=== PATIENT | male | born 1985 | race Caucasian/White ===

== ENCOUNTER 2019-12-20 22:52 | Emergency (ER) | payer BC, SELFPAY ==
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
[2019-12-20 22:58] VITALS: BP 157/102; PULSE 72; RESP 16; TEMP 35.8; O2SAT 98
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
[2019-12-20] MEDS: HYDROcodone/acetaminophen (*CRX) 5-325 MG TABLET 1 TAB PO (23:20)
[2019-12-20 23:50] VITALS: TEMP 36.9
[2019-12-21 00:22] VITALS: BP 146/74; PULSE 67; RESP 16; TEMP 36.9; O2SAT 100
== END 2019-12-21 00:25 | disposition home or self-care (01) ==
LOC: ANHED 12-21 00:06
PROVIDERS: Emergency Provider Emergency Medicine; PCP Family Medicine
DX: S52.591A Other fractures of lower end of right radius, initial encounter for closed fracture (principal); S52.611A Displaced fracture of right ulna styloid process, initial encounter for closed fracture; I10 Essential (primary) hypertension
CPT/HCPCS: 29125; 73110; 99284; A4565; A9270

== ENCOUNTER 2020-06-04 14:00 | Outpatient (RCR) | payer BC, OTHER, SELFPAY ==
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
--- NOTE | 2020-04-20 13:24 | OTOPEVAL ---
OCCUPATIONAL THERAPY RE-EVALUATION REPORT 04/20/20 As noted below, Andrae's ROM has made improvements in the forearm, wrist, and hand, but he does continue to have functional limitations due to stiffness and weakness. Plan to put therapy on hold for now as patient is independent with active and passive ROM exercises and per MD order, strengthening has not been indicated yet. Will continue treatment after patient's pin removal (04/29/20). Thank you for referring Fam Avery to [facility].? The patient will be scheduled for continued therapy after new orders are received following his pin removal. Please review, sign, date and return this plan of care SHER. I agree with and certify that the following plan of care is medically necessary. Referring Physician Date Referring Provider: Fam Alfaro *OT Outpatient Re-Evaluation Evaluation Information Problem Diagnosis Right distal radius and ulnar styloid fracture Additional Evaluation Detail Andrae has participated in 6 weeks of outpatient OT focused on improved active and passive ROM, treating pain, and scar management. As noted below, ROM has made improvements in the forearm, wrist, and hand, but he does continue to have functional limitations. He is scheduled to have pin removal surgery . Subjective Information Patient reports that he is now Query Text:As Reported By Patient/ able to use the right hand to Family supinate better to hold water in his palm when he's brushing his teeth, write, he is back to washing dishes, start and shift his car, and open doors. Pain Assessment Timing of Pain Assessment Timing of Pain Assessment Re-assessment Pain Scale Pain Scale Used Numeric (1 - 10) Self Report Pain Assessment Right Wrist(s) Reported Pain Level 1 Pain Description Soreness Lowest Pain Intensity 0 Greatest Pain Intensity 3 Pain Score Pain Score 1: Self Report Interventions Used Interventions Used By Clinicians Exercise,Paraffin Upper Extremity Range of Motion Elbow/Forearm Range of Motion Right Forearm Supination - Active 60 Forearm Supination - Passive 75 Forearm Pronation - Active 80 Forearm Pronation - Passive 85 Elbow/Forearm Range of Motion Comments Elbow flexion/extension are WNL. Supination improved from 30* Pronation improved from 65* Wrist Range of Motion Right Wrist Flexion - Active
--- NOTE | 2020-05-24 08:51 | OTOPEVAL ---
OCCUPATIONAL THERAPY RE-EVALUATION REPORT 05/24/20 Thank you for referring Fam Avery to [facility].? The patient is scheduled to be seen for occupational therapy? 2x/week for 5 weeks. Please review, sign, date and return this plan of care SHER. I agree with and certify that the following plan of care is medically necessary. Referring Physician Date Referring Provider: Fam Alfaro MD *OT Outpatient Re-Evaluation Re-Evaluation Information Problem Diagnosis Right distal radius and ulnar styloid fracture Additional Evaluation Detail Andrae presents today after ulnar styloid pin removal on 04/29/20. Subjective Information Patient reports that he has Query Text:As Reported By Patient/ returned to completing his ROM Family HEP x1 week after getting his stitches removed. He states his ROM is now more comfortable, but he still has some residual stiffness and weakness. Pain Assessment Timing of Pain Assessment Timing of Pain Assessment Assessment Pain Scale Pain Scale Used Numeric (1 - 10) Self Report Pain Assessment Right Wrist(s) Reported Pain Level 0 Pain Description Soreness Lowest Pain Intensity 0 Greatest Pain Intensity 3 Pain Score Pain Score 0: Self Report Upper Extremity Range of Motion Elbow/Forearm Range of Motion Right Forearm Supination - Active 65 Forearm Supination - Passive 75 Forearm Pronation - Active 85 Wrist Range of Motion Right Wrist Flexion - Active 50 Wrist Flexion - Passive 60 Wrist Extension - Active 45 Wrist Extension - Passive 60 Wrist Radial Deviation - Active 17 Wrist Ulnar Deviation - Active 25 Finger Range of Motion Right Reason Not Measured WNL/Right Thumb Range of Motion Right Reason Not Measured WNL/Right Hand Setter Automatic Spinning Lathe/Pinch Strength Assessment Hand Right Setter Automatic Spinning Lathe Strength (lbs) 83.6 OT Clinical Summary OT Clinical Summary Fam presents today for re- evaluation after 5 weeks off of therapy due to having pin removal. He reports returning to active and passive ROM HEP and states this is going well. Instructed in progressive resistive strengthening for the forearm and wrist this date. Continued skilled OT indicated for instruction in progres
--- NOTE | 2020-06-08 07:30 | PCOTNOTE ---
This treatment is being continued on visit number [id number]. Please see documentation on both accounts to view progress. Completed interventions, outcomes, and problems have been marked as Inactive to facilitate the copying of the Care plan routine for recurring accounts.
== END 2020-06-07 23:59 | disposition home or self-care (01) ==
LOC: ANHOT 14:00
PROVIDERS: PCP Family Medicine; Visit Provider Family Medicine
DX: S52.571D Other intraarticular fracture of lower end of right radius, subsequent encounter for closed fracture with routine healing (principal)
CPT/HCPCS: 97018; 97110; 97140; 97165

== ENCOUNTER 2020-06-29 15:00 | Outpatient (RCR) | payer BC, OTHER, SELFPAY ==
--- NOTE | 2020-06-08 07:31 | PCOTNOTE ---
The treatment documented on this account is a continuation of the treatment documented on visit number [id number]. Please see documentation on both accounts to view progress. The Plan of Care has been transitioned and updated within the new V#. I have addressed and agree with the discipline specific Problems, Interventions, and Goals for the current certification period. Completed interventions, outcomes, and problems have been marked as Inactive to facilitate the copying of the Care plan routine for recurring accounts.
--- NOTE | 2020-06-24 15:28 | PCOTNOTE ---
Patient did not show up for scheduled appointment this date. Called patient and he stated that he had a busy day and forgot about his appointment.
--- NOTE | 2020-06-29 15:44 | OTOPEVAL ---
OCCUPATIONAL THERAPY RE-EVAL AND D/C REPORT 06/29/20 Fam presents for his final re-evaluation after an additional 5 weeks of therapy (10 weeks total after pin removal surgery). As noted below, he has regained functional ROM of the right forearm and wrist. He continues to be limited functionally by the decreased active wrist extension, but at this time is currently independent with HEP for stretching and strengthening. No further skilled OT indicated at this time. Thank you for referring Fam Avery to [facility].?Please review, sign, date and return this D/C Note SHER. I agree with and certify that the following plan of care is medically necessary. Referring Physician Date Referring Provider: Fam Angelina *OT Outpatient Evaluation Start: 06/08/20 15:27 Freq: Status: Active Protocol: Document 06/29/20 15:11 [email or web address] (Rec: 06/29/20 15:40 [email or web address] [email or web address]) Therapy Assessment Status Assessment Status Assessment Status Evaluation Evaluation Information Problem Diagnosis Right distal radius and ulnar styloid fracture Subjective Information Patient reports that since our Query Text:As Reported By Patient/ last reassessment from 05/24/ Family 21, he has noticed progress with functional strength and ROM. Functional limitations include being unable to do a push up, hold a high plank position, or use the heel of his hand to turn a steering wheel - all are issues with functional extension. Pain Assessment Timing of Pain Assessment Timing of Pain Assessment Re-assessment Pain Scale Pain Scale Used Numeric (1 - 10) Self Report Pain Assessment Right Wrist(s) Reported Pain Level 0 Lowest Pain Intensity 0 Greatest Pain Intensity 0 Pain Score Pain Score 0: Self Report Additional Pain Score Comments No pain, just reports of stiffness. Upper Extremity Range of Motion Elbow/Forearm Range of Motion Right Forearm Supination - Active 75 Forearm Pronation - Active 90 Elbow/Forearm Range of Motion Comments Elbow flexion/extension is WNL. Improvements from last re-eval: Supination improved from 65* Pronation remained WNL. Wrist Range of Motion Right Wrist Flexion - Active 60 Wrist Flexion - Passive 65 Wrist Extension - Active 50 Wrist Extension - Passive 65 Wrist Radial Deviation - Active 25 Wrist Ulnar Deviation - Active 25 Wrist Range of Motion Comments Improvements from last re-eval
== END 2020-06-30 14:20 | disposition home or self-care (01) ==
LOC: ANHOT 15:00
PROVIDERS: PCP Family Medicine; Visit Provider Family Medicine
DX: S52.571D Other intraarticular fracture of lower end of right radius, subsequent encounter for closed fracture with routine healing (principal)
CPT/HCPCS: 97110

== ENCOUNTER 2020-10-29 15:24 | Outpatient (CLI) | payer BC, SELFPAY | END 2020-10-29 15:25 | disposition home or self-care (01) | PROVIDERS: PCP Family Medicine; Visit Provider Physician Assistant | DX: Z01.84 Encounter for antibody response examination (principal) | CPT/HCPCS: 36415; 86769 ==

== ENCOUNTER → 2021-03-14 13:22 | Outpatient (REF) | payer BC, SELFPAY | LOC: ANHLAB 13:22 | PROVIDERS: PCP Family Medicine; Visit Provider Nurse Practitioner | DX: L72.0 Epidermal cyst (principal); D22.61 Melanocytic nevi of right upper limb, including shoulder | CPT/HCPCS: 88304; 88305 ==

== ENCOUNTER 2023-04-14 08:21 | Outpatient (CLI) | payer OTHER, SELFPAY ==
[2023-04-14 09:00] LABS: Appearance Urine Clear (Clear); Bilirubin Urine Negative (Negative); Blood Urine Negative (Negative); Color Urine Yellow (Yellow); Glucose Urine UA Negative (Negative); Ketones Urine Negative (Negative); Leukocyte Esterase Ur Negative LEU/UL (NEGATIVE); Nitrate Urine Negative (Negative); Protein Urine Negative (Negative); Urobilinogen Urine 0.2 mg/dL (<2.0); pH Urine 6.5 (5.0-9.0)
[2023-04-14 09:00] LABS: Basophils Percent Auto 0.5 % (0.2-1.2); Eosinophils Absolute Auto 0.1 K/mm3 (0-0.3); Eosinophils Percent Auto 1.7 % (0-4.4); Hematocrit 43.8 % (42.0-52.0); Hemoglobin 14.4 g/dL (14.0-18.0); Immature Granulocyte Absolute 0.01 K/mm3 (0.00-0.031); Immature Granulocyte Percent A 0.2 % (0-0.5); Lymphocytes Absolute Auto 1.68 K/mm3 (0.9-3.2); Lymphocytes Percent Auto 25.7 % (18.3-44.2); Mean Corpuscular HGB Conc 32.9 g/dl (32-36); Mean Corpuscular Hemoglobin 28.6 pg (26-34); Mean Corpuscular Volume 87.1 fl (80-100); Mean Platelet Volume 10.7 fl (7.4-10.4); Monocytes Absolute Auto 0.5 K/mm3 (0.1-0.6); Monocytes Percent Auto 8.1 % (2.6-8.5); Neutrophils Absolute Auto 4.2 K/mm3 (1.3-6.7); Neutrophils Percent Auto 63.8 % (45.5-73.1); Platelet Count Result 185 k/mm3 (150-375); Red Blood Count 5.03 M/mm3 (4.6-6.20); Red Cell Distribution Width 12.8 % (11.5-14.5); White Blood Count 6.5 K/mm3 (4.5-10.0)
[2023-04-14 09:13] LABS: Add Urine Microscopic? NO
[2023-04-14 09:15] LABS: Alanine Aminotransferase 26 U/L (6-50); Albumin Level 4.3 g/dL (3.5-5.1); Alkaline Phosphatase 70 U/L (38-126); Anion Gap 5 mmol/L (8-16); Aspartate Amino Transferase 30 U/L (17-59); Bilirubin,Total 0.9 mg/dL (0.2-1.3); Blood Urea Nitrogen 19 mg/dL (9-20); Calcium 9.3 mg/dL (8.4-10.2); Carbon Dioxide 29 mmol/L (22-30); Chloride 103 mmol/L (98-107); Cholesterol 219 mg/dL (0-200); Estimated Glomerular Filt Rate > 60; Glucose 103 mg/dL (65-110); HDL Direct 48 mg/dL; Potassium 5.1 mmol/L (3.4-5.0); Sodium 137 mmol/L (137-145); Triglycerides 48 mg/dL (<150)
[2023-04-14 09:26] LABS: LDL Cholesterol Direct 141 mg/dL
== END 2023-04-14 08:22 | disposition home or self-care (01) ==
LOC: ANHLAB 08:23
PROVIDERS: PCP Family Medicine; Visit Provider Physician Assistant
DX: Z00.00 Encounter for general adult medical examination without abnormal findings (principal); F32.A Depression, unspecified; I10 Essential (primary) hypertension
CPT/HCPCS: 36415; 80053; 80061; 81003; 84443; 85025